=== PATIENT | female | born 1980 | race Caucasian/White ===

== ENCOUNTER 2022-04-27 04:16 | Day surgery (SDC) | payer OTHER ==
[2022-04-25 12:36] VITALS: BMI 27.4
[2022-04-27 11:58] VITALS: TEMP 98
[2022-04-27 12:25] VITALS: BP 130/88; PULSE 96; RESP 22
== END 2022-04-27 12:32 | disposition home or self-care (01) ==
LOC: JASU-ENDO 04:16
PROVIDERS: ATTEND Internal Medicine Gastroenterology
PROC: 0DB78ZX Excision of Stomach, Pylorus, Via Natural or Artificial Opening Endoscopic, Diagnostic (ICD-10-PCS; 2022-04-27)
PROC: 0DB68ZX Excision of Stomach, Via Natural or Artificial Opening Endoscopic, Diagnostic (ICD-10-PCS; 2022-04-27)
PROC: 0DB28ZX Excision of Middle Esophagus, Via Natural or Artificial Opening Endoscopic, Diagnostic (ICD-10-PCS; 2022-04-27)
PROC: 0DB38ZX Excision of Lower Esophagus, Via Natural or Artificial Opening Endoscopic, Diagnostic (ICD-10-PCS; 2022-04-27)
PROC: 0DB98ZX Excision of Duodenum, Via Natural or Artificial Opening Endoscopic, Diagnostic (ICD-10-PCS; principal; 2022-04-27 11:30)
DX: K21.00 Gastro-esophageal reflux disease with esophagitis, without bleeding (principal); K44.9 Diaphragmatic hernia without obstruction or gangrene; K29.50 Unspecified chronic gastritis without bleeding; K29.80 Duodenitis without bleeding; B96.81 Helicobacter pylori [H. pylori] as the cause of diseases classified elsewhere
CPT/HCPCS: 81025; 88305-TC; 88341-TC; 88342-TC